=== PATIENT | female | born 1970 | race Caucasian/White ===

== ENCOUNTER → 2016-10-10 | Outpatient (CLI) | payer OTHER ==
[~2016-10-10] MED LIST: ALPR0.254 PO; CALC-39 PO; CHOL500050 PO; FERR325T20 PO; FLUO40CA9 PO; L.AC1CAP6 PO; LORA10TA75 PO; MAGN400T26 PO; MULT-115 PO; OXYC-223 PO; PSEU120T44 PO; RANI150T4 PO; ZOLP12.52 PO
[2016-10-10 09:01] LABS: ASPARTATE AMINO TRANSFERASE 10 U/L (15-37); BLOOD UREA NITROGEN 19 mg/dL (7-18)
== END | disposition home or self-care (01) ==
LOC: LAB 08:39
PROVIDERS: ATTEND Nurse Practitioner Family
DX: E78.5 Hyperlipidemia, unspecified (principal); F41.9 Anxiety disorder, unspecified; E55.9 Vitamin D deficiency, unspecified
CPT/HCPCS: 36415; 80053; 80061; 82306

== ENCOUNTER → 2017-02-20 | Outpatient (CLI) | payer OTHER ==
[~2017-02-20] MED LIST changes: +FERR325T18 PO; -FERR325T20 PO; -OXYC-223 PO; +OXYC-306 PO
[2017-02-20 07:22] LABS: HEMATOCRIT 41.2 % (34.6-47.8); HEMOGLOBIN 13.9 g/dL (11.7-16.4); WHITE BLOOD COUNT 8.1 x10^3/uL (3.4-10)
[2017-02-20 07:31] LABS: ASPARTATE AMINO TRANSFERASE 15 U/L (15-37); BLOOD UREA NITROGEN 18 mg/dL (7-18)
== END | disposition home or self-care (01) ==
LOC: LAB 07:04
PROVIDERS: ATTEND Nurse Practitioner Family
DX: E78.5 Hyperlipidemia, unspecified (principal); E55.9 Vitamin D deficiency, unspecified; L85.3 Xerosis cutis; F41.9 Anxiety disorder, unspecified
CPT/HCPCS: 36415; 80053; 82306; 84439; 84443; 85025

== ENCOUNTER 2017-05-02 09:50 | Emergency (ER) | payer OTHER ==
[~2017-05-02] VITALS: Ht 172.7 cm; Wt 70.0 kg
[2017-05-02 10:04] VITALS: BP 140/90
[2017-05-02] MEDS ORDERED: DEXAMETHASONE 4 MG TABLET ONE (10:09)
[2017-05-02] MEDS: DEXAMETHASONE 4 MG TABLET PO ONE (10:10)
== END 2017-05-02 10:18 | disposition home or self-care (01) ==
LOC: ED 10:12
DX: J20.9 Acute bronchitis, unspecified (principal)
CPT/HCPCS: 99283

== ENCOUNTER → 2017-05-23 | Outpatient (CLI) | payer OTHER | END | disposition home or self-care (01) | LOC: CFH 07:14 | PROVIDERS: ATTEND Obstetrics & Gynecology | DX: Z12.31 Encounter for screening mammogram for malignant neoplasm of breast (principal); Z80.3 Family history of malignant neoplasm of breast | CPT/HCPCS: 77067 ==

== ENCOUNTER → 2017-06-30 | Outpatient (CLI) | payer OTHER ==
[2017-06-30 10:08] LABS: BASOPHILS # (AUTO) 0.02 x10^3/uL (0-0.1); BASOPHILS % (AUTO) 0 % (0-1); EOSINOPHILS # (AUTO) 0.14 x10^3/uL (0-0.4); EOSINOPHILS % (AUTO) 2 % (1-7); LYMPHOCYTES # (AUTO) 2.22 x10^3/uL (1-3.4); LYMPHOCYTES % (AUTO) 31 % (22-44); MD NO; MEAN CORPUSCULAR HGB CONC 33.6 g/dL (32.4-35.8); MEAN CORPUSCULAR VOLUME 86.3 fL (80-100); MEAN PLATELET VOLUME 6.9 fL (7.4-10.4); MONOCYTES # (AUTO) 0.37 x10^3/uL (0.2-0.8); MONOCYTES % (AUTO) 5 % (2-9); NEUTROPHILS # (AUTO) 4.42 x10^3/uL (1.8-6.8); NEUTROPHILS % (AUTO) 62 % (42-75); PLATELET COUNT 326 x10^3/uL (130-400); RED BLOOD COUNT 4.66 x10^6/uL (3.82-5.3); RED CELL DISTRIBUTION WIDTH 14.1 % (9.6-15.2)
[2017-06-30 10:20] LABS: ALBUMIN 3.6 g/dL (3.4-5.0); ANION GAP 5 mmol/L (5-15); CALCIUM 8.2 mg/dL (8.5-10.1); CHLORIDE 110 mmol/L (98-107)
[2017-06-30 10:44] LABS: ALANINE AMINOTRANSFERASE 20 U/L (12-78); ALKALINE PHOSPHATASE 58 U/L (45-117); BILIRUBIN,TOTAL 0.3 mg/dL (0.2-1.0); CHOL/HDL RATIO 2.3; CHOLESTEROL, TOTAL 237 mg/dL (140-239); CREATININE 0.71 mg/dL (0.55-1.02); HDL CHOL % 44 % (28-40); HDL CHOLESTEROL (DIRECT) 104 mg/dL (40-60); LDL CHOLESTEROL,CALCULATED 122 mg/dL (54-169); LDL/HDL RATIO 1.2 (0.5-3.0); TOTAL PROTEIN 7.1 g/dL (6.4-8.2); TRIGLYCERIDES 53 mg/dL (50-200); VLDL CHOLESTEROL 11 mg/dL (0-25)
== END | disposition home or self-care (01) ==
LOC: LAB 09:22
PROVIDERS: ATTEND Specialist
DX: E55.9 Vitamin D deficiency, unspecified (principal); E34.9 Endocrine disorder, unspecified; E78.5 Hyperlipidemia, unspecified; R53.83 Other fatigue
CPT/HCPCS: 36415; 80053; 80061; 82306; 82607; 82670; 83001; 84403; 84443; 84481; 85025; 86376